=== PATIENT | female | born 1995 | race Two or more races ===

== ENCOUNTER 2023-03-29 09:28 | Emergency (ER) | payer OTHER ==
[~2023-03-29] VITALS: Ht 157.5 cm; Wt 89.8 kg
[2023-03-29 13:28] LABS: ALBUMIN 3.4 gm/dL (3.4-5.0); CALCIUM 8.7 mg/dL (8.5-10.1); GLOBULINA 3.6 G/DL (2.4-3.5); POTASSIUM 3.7 mEq/L (3.5-5.1)
[2023-03-29 13:29] LABS: BILIRUBIN TOTAL 0.16 mg/dL (0.3-1.2); CREATININE SERUM 0.65 mg/dL (0.55-1.02); GFR 107.76
[2023-03-29 13:47] LABS: MEAN CELL VOLUME 72.8 fL (80.00-100.00); MEAN CORPUSCULAR HGB CONC 32.8 g/dl (32.0-36.0); PLATELET COUNT 290 K/uL (150-450); RED BLOOD COUNT 2.73 M/uL (4.00-6.00); RED CELL DISTRIBUTION WIDTH 16.9 % (11.5-14.5)
[2023-03-29 13:50] LABS: HEMATOCRIT 19.9 % (36.0-45.00); HEMOGLOBIN 6.5 g/dL (12.0-15.00); MEAN CORPUSCULAR HEMOGLOBIN 23.8 pg (27.00-32.0)
[2023-03-29 14:38] LABS: MEAN CELL VOLUME 72.3 fL (80.00-100.00); MEAN CORPUSCULAR HGB CONC 33.8 g/dl (32.0-36.0); PLATELET COUNT 290 K/uL (150-450); RED BLOOD COUNT 2.72 M/uL (4.00-6.00); RED CELL DISTRIBUTION WIDTH 16.4 % (11.5-14.5)
[2023-03-29 14:59] LABS: HEMATOCRIT 19.7 % (36.0-45.00); MEAN CORPUSCULAR HEMOGLOBIN 24.6 pg (27.00-32.0)
[2023-03-29 15:02] LABS: HEMOGLOBIN 6.7 g/dL (12.0-15.00)
[2023-03-29 15:07] LABS: PH,URINE 6.5 (5.0-8.0); URINE APPEARANCE Turbid; URINE BILIRRUBIN Small (NEGATIVE); URINE BLOOD Large; URINE COLOR Red; URINE GLUCOSE Negative (NEGATIVE); URINE LEUKOCYTE Small; URINE NITRATE Negative; URINE UROBILINOGEN 0.2 E.U./dl
[2023-03-29 15:10] LABS: URINE BACTERIA 488.8 uL (0.0-1933); URINE EPITHELIAL CELLS 25.8 uL (0.0-38.8); URINE WBC 46.3 uL (0.0-23.2)
[2023-03-29 15:46] LABS: URINE PROTEIN 100 (NEGATIVE); URINE RBC > 10558.9 uL (0.0-20.8)
[2023-03-30] MEDS ORDERED: FUROsemide 20 MG/2 ML VIAL IV SCH (12:15)
[2023-03-30 18:12] LABS: HEMATOCRIT 32.7 % (36.0-45.00); HEMOGLOBIN 10.9 g/dL (12.0-15.00); MEAN CELL VOLUME 77.3 fL (80.00-100.00); MEAN CORPUSCULAR HEMOGLOBIN 25.8 pg (27.00-32.0); MEAN CORPUSCULAR HGB CONC 33.4 g/dl (32.0-36.0); PLATELET COUNT 334 K/uL (150-450); RED BLOOD COUNT 4.23 M/uL (4.00-6.00)
== END 2023-03-30 20:34 | disposition home or self-care (01) ==
LOC: ER 10:12
PROVIDERS: Emergency Medicine; Student in an Organized Health Care Education/Training Program
DX: O20.8 Other hemorrhage in early pregnancy (principal); O99.011 Anemia complicating pregnancy, first trimester; Z3A.01 Less than 8 weeks gestation of pregnancy
CPT/HCPCS: 36415; 36430; 76801; 76817; P9021